=== PATIENT | male | born 1940 | race Caucasian/White ===

== ENCOUNTER 2018-09-08 23:39 | Emergency (ER) | payer MEDICARE, OTHER ==
[2018-09-08] MEDS ORDERED: NORMAL SALINE 1000 ML 1,000 ML IV ONE (23:59)
[2018-09-09] MEDS ORDERED: METOCLOPRAMIDE HCL INJ/PF 10 MG/2 ML SDV IV ONE (00:02)
--- NOTE | 2018-09-09 00:04 | ER Document Report ---
ED Medical Screen (RME) - General Chief Complaint: Chest Pain Stated Complaint: CHEST PAIN Time Seen by Provider: 09/08/18 23:59 Notes: 77-year-old male chief complaint of epigastric pain (he points) and 5 episodes of vomiting. He had a loose stool earlier today. Denies hematemesis. He is visiting from [place]. Multiple abdominal surgeries including a neobladder, status post bladder and prostate cancer with removal. No recent surgeries, not on chemotherapy or radiation. Physical Exam - Vital signs Vitals: Temp Pulse Resp BP Pulse Ox 97.5 F 91 18 129/74 H 94 09/08/18 23:53 09/08/18 23:53 09/08/18 23:53 09/08/18 23:53 09/08/18 23:53 - Abdominal Tenderness: Tender - Tender in the epigastric area, lower abdomen is benign Course - Re-evaluation Re-evalutation: Patient belching, seems to have chest vomiting. Sharp epigastric pain. Ot herwise he is alert and generally well-appearing. Maintaining current triage level, work-up pending. I have greeted and performed a rapid initial assessment of this patient. A comprehensive ED assessment and evaluation of the patient, analysis of test results and completion of the medical decision making process will be conducted by additional ED providers. - Vital Signs Vital signs: Temp Pulse Resp BP Pulse Ox 97.5 F 91 18 129/74 H 94 09/08/18 23:53 09/08/18 23:53 09/08/18 23:53 09/08/18 23:53 09/08/18 23:53
--- NOTE | 2018-09-09 00:27 | ER Document Report ---
ED General - General Chief Complaint: Chest Pain Stated Complaint: CHEST PAIN Time Seen by Provider: 09/08/18 23:59 - HPI Notes: Patient is a 77-year-old male that presents to the emergency department for chief complaint of abdominal pain and vomiting. Patient reports eating at [employer] around 6 PM yesterday. At 9 PM he started to have epigastric abdominal pain and vomiting. He states he has vomited 3 times last night and about 5 times again this evening. He reports epigastric pain that is sharp and constant. He did have one large well-formed bowel movement prior to coming to the ER and states that he did have improvement of his pain after bowel movement. He denies any aggravating factors to his pain. The pain is epigastric and radiates up into his chest and his midsternal region. He states the chest pain started this evening and is a heavy achy sensation. The pain in his chest started after taking his evening pills and he reports feeling like something may be "stuck". He denies associated fevers or chills. Patient does have a history of small bowel obstructions in the past but states this feels different. He denies history of pancreatitis. He denies alcohol use. Past Medical History: Bladder cancer, prostate cancer, neobladder Past Surgical History: Small bowel resection, multiple bladder surgeries Social History: Denies drugs alcohol and tobacco Family History: Reviewed and noncontributory for presenting illness Allergies: Reviewed, see documented allergy list. REVIEW OF SYSTEMS: CONSTITUTIONAL : No fever No chills No diaphoresis No recent illness EENT: No vision changes No congestion No sore throat CARDIOVASCULAR: chest pain No palpitations RESPIRATORY: No shortness of breath No cough No difficulty breathing GASTROINTESTINAL: abdominal pain nausea vomiting No diarrhea GENITOURINARY: No dysuria No hematuria No difficulty urinating MUSCULOSKELETAL: No back pain No leg pain No arm pain SKIN: No rashes No lesions LYMPHATIC: No swollen, enlarged glands. NEUROLOGICAL: No lightheadedness No headache No weakness No paresthesias PSYCHIATRIC: No anxiety No depression PHYSICAL EXAMINATION: Vital signs reviewed, nursing noted reviewed. GENERAL: Well-appearing, well-nourished and in no acute distress. HEAD: Atraumatic, normocephalic. EYES: Eyes appear normal, extraocular movements intact, sclera anicteric, conjunctiva are normal. ENT: nares patent, oropharynx clear without exudates. Dry mucous membranes. NECK: Normal range of motion, supple without lymphadenopathy LUNGS: Breath sounds clear to auscultation bilaterally and equal. No wheezes rales or rhonchi. HEART: Regular rate and rhythm without murmurs ABDOMEN: Soft, epigastric tenderness, normoactive bowel sounds. No rebound, guarding, or rigidity. No masses appreciated. EXTREMITIES: Nontender, good range of motion, no pitting or edema. NEUROLOGICAL: No focal neurological deficits. Moves all extremities spontaneously Motor and sensory grossly intact on exam. PSYCH: Normal mood, normal affect. SKIN: Warm, Dry, normal turgor, no rashes or lesions noted on exposed skin Past Medical History - Social History Smoking Status: Never Smoker Family History: Reviewed & Not Pertinent Physical Exam - Vital signs Vitals: Temp Pulse Resp BP Pulse Ox 97.5 F 91 18 129/74 H 94 09/08/18 23:53 09/08/18 23:53 09/08/18 23:53 09/08/18 23:53 09/08/18 23:53 Course - Re-evaluation Re-evalutation: 09/09/18 00:27 Vitals reviewed. Nursing notes reviewed. Patient was given fluids and Reglan in triage and reports significant symptomatic improvement. He does have mild epigastric tenderness with no peritoneal signs. 09/09/18 01:31 Patient's lab work shows a leukocytosis and elevation of his lipase. He does have epigastric tenderness to suggest acute pancreatitis. Patient also has renal insufficiency secondary to dehydration. He is receiving IV fluids. His leukocytosis is likely reactive from his continuous vomiting and there is no current signs of acute infection requiring antibiotics. His chest ray showed bibasilar atelectasis versus pneumonia however he has not had any cough symptoms to suggest pneumonia and I believe this to be atelectasis from positioning. He is not septic. KUB shows dilated loops of small bowel consistent with likely small bowel obstruction. Patient has had multiple abdominal surgeries and obstructions in the past. CT scan with oral contrast will be ordered to further delineate patient's bowel obstruction. Laboratory 09/09/18 09/09/18 09/09/18 00:18 00:18 00:18 WBC 14.9 H RBC 5.71 H Hgb 16.7 Hct 50.2 MCV 88 MCH 29.3 MCHC 33.4 RDW 14.1 H Plt Count 241 Seg Neutrophils % 80.4 H Lymphocytes % 9.9 L Monocytes % 9.4 Eosinophils % 0.1 Basophils % 0.2 Absolute Neutrophils 12.0 H Absolute Lymphocytes 1.5 Absolute Monocytes 1.4 Absolute Eosinophils 0.0 Absolute Basophils 0.0 Sodium 141.7 Potassium 4.6 Chloride 104 Carbon Dioxide 26 Anion Gap 12 BUN 35 H Creatinine 1.44 H Est GFR ( Amer) 58 L Est GFR (Non-Af Amer) 48 L Glucose 163 H Calcium 9.6 Total Bilirubin 0.7 Direct Bilirubin 0.3 Neonat Total Bilirubin Not Reportable Neonat Direct Bilirubin Not Reportable Neonat Indirect Bili Not Reportable AST 25 ALT 32 Alkaline Phosphatase 78 Troponin I < 0.012 Total Protein 6.7 Albumin 3.9 Lipase 447.5 H Chest X-Ray 09/09/18 00:24 IMPRESSION: Right basilar interstitial opacities, likely representing atelectasis or possibly pneumonia. copyright 2010 [employer]- All Rights Reserved KUB X-Ray 09/09/18 00:24 IMPRESSION: Dilated short segment of small bowel which may be due to an obstruction or focal ileus. copyright 2010 [employer]- All Rights Reserved 09/09/18 01:39 On reevaluation patient states he is feeling some improvement. Repeat abdominal exam is unchanged. He has not vomited since being in the ED. 09/09/18 03:50 Patient has no bowel obstruction or other acute process on CT scan of his abdomen. He tolerated drinking all of the oral contrast and has not had any emesis. Patient does not have acute urinary tract infection. His leukocytosis and elevated lipase are likely reactive from the vomiting but he is tolerating oral intake and is currently comfortable with minimal pain. Patient would like to be discharged home. I did offer admission to the hospital for hydration and monitoring of his renal insufficiency but he has declined. He states he will eat a liquid diet today and advance his diet as tolerated with bland foods. I did discuss staying well-hydrated and return precautions. Patient states he will return for any worsening symptoms or inability to tolerate oral intake. He will follow with his primary care doctor when he returns home for repeat blood work. - Vital Signs Vital signs: Temp Pulse Resp BP Pulse Ox 97.5 F 91 18 129/74 H 94 09/08/18 23:53 09/08/18 23:53 09/08/18 23:53 09/08/18 23:53 09/08/18 23:53 - Laboratory Result Diagrams: 09/09/18 00:18 09/09/18 00:18 Laboratory results interpreted by me: 09/09/18 09/09/18 09/09/18 00:18 00:18 03:14 WBC 14.9 H RBC 5.71 H RDW 14.1 H Seg Neutrophils % 80.4 H Lymphocytes % 9.9 L Absolute Neutrophils 12.0 H BUN 35 H Creatinine 1.44 H Est GFR ( Amer) 58 L Est GFR (Non-Af Amer) 48 L Glucose 163 H Lipase 447.5 H Urine Protein 30 H Urine Ascorbic Acid 40 H Discharge - Discharge Clinical Impression: Acute renal insufficiency, Dehydration, Elevated lipase Abdominal pain Qualifiers: Abdominal location: upper abdomen, unspecified Qualified Code(s): R10.10 - Upper abdominal pain, unspecified Vomiting Qualifiers: Vomiting type: unspecified Vomiting Intractability: non-intractable Nausea presence: with nausea Qualified Code(s): R11.2 - Nausea with vomiting, unspecified Condition: Stable Disposition: HOME, SELF-CARE Instructions: Abdominal Pain ([facility]), Vomiting ([facility]), Dehydration ([facility]) Additional Instructions: Please return to the emergency department if you have any worsening, or concern of your symptoms. Please return to the emergency department if you develop chest pain, difficulty breathing, severe abdominal pain, or ongoing vomiting. Please follow-up with your primary care physician in 2-3 days and any other recommended physicians. If prescribed, take all medications as directed. If you have any questions or concerns do not hesitate to return the emergency department for evaluation. If you are unable to stay hydrated at home or have continued vomiting and worsening pain you should be reevaluated in the emergency room. Prescriptions: Ondansetron [Zofran Odt 4 mg Tablet] 1 tab PO Q4H PRN #15 tab.rapdis PRN Reason: For Nausea/Vomiting Referrals: [facility] [Provider Group] - Follow up as needed
[2018-09-09 00:35] LABS: ABSOLUTE LYMPHOCYTES (AUTO) 1.5 10^3/uL (0.5-4.7); ABSOLUTE MONOCYTES (AUTO) 1.4 10^3/uL (0.1-1.4); BASOPHILS % (AUTO) 0.2 % (0-2); EOSINOPHILS % (AUTO) 0.1 % (0-6); HEMATOCRIT 50.2 % (37.9-51.0); HEMOGLOBIN 16.7 g/dL (13.5-17.0); LYMPHOCYTES % (AUTO) 9.9 % (13-45); MEAN CORPUSCULAR HEMOGLOBIN 29.3 pg (27.0-33.4); MEAN CORPUSCULAR HGB CONC 33.4 g/dL (32.0-36.0); MEAN CORPUSCULAR VOLUME 88 fl (80-97); MONOCYTES % (AUTO) 9.4 % (3-13); PLATELET COUNT 241 10^3/uL (150-450); RED BLOOD COUNT 5.71 10^6/uL (4.35-5.55); RED CELL DISTRIBUTION WIDTH 14.1 % (11.5-14.0); SEGMENTED NEUTROPHILS % (AUTO) 80.4 % (42-78); TOTAL CELLS COUNTED % (AUTO) 100 %; WHITE BLOOD COUNT 14.9 10^3/uL (4.0-10.5)
[2018-09-09 01:00] LABS: ALANINE AMINOTRANSFERASE 32 U/L (21-72); ALBUMIN 3.9 g/dL (3.5-5.0); ALKALINE PHOSPHATASE 78 U/L (38-126); ANION GAP 12 (5-19); ASPARTATE AMINO TRANSFERASE 25 U/L (17-59); BILIRUBIN,DIRECT 0.3 mg/dL (0.0-0.4); BILIRUBIN,TOTAL 0.7 mg/dL (0.2-1.3); BLOOD UREA NITROGEN 35 mg/dL (7-20); CALCIUM 9.6 mg/dL (8.4-10.2); CARBON DIOXIDE 26 mmol/L (22-30); CHLORIDE 104 mmol/L (98-107); GLUCOSE 163 mg/dL (75-110); LIPASE 447.5 U/L (23-300); POTASSIUM 4.6 mmol/L (3.6-5.0); SODIUM 141.7 mmol/L (137-145); TOTAL PROTEIN 6.7 g/dL (6.3-8.2)
--- NOTE | 2018-09-09 01:17 | RADIOLOGY REPORT (SQ) ---
EXAM DESCRIPTION: XR ABDOMEN 1 VIEW (KUB) COMPLETED DATE/TME: 09/09/2018 00:24 CLINICAL HISTORY: 77 years, Male, abdominal pain, epigastric] COMPARISON: None. NUMBER OF VIEWS: One TECHNIQUE: AP view of the abdomen LIMITATIONS: None. FINDINGS: There is a dilated segment of small bowel along the left paracentral abdomen which measures up to 3.3 cm in diameter. There are no abnormal calcifications. Multiple surgical clips are noted in the lower abdomen and pelvis. There is no acute fracture. IMPRESSION: Dilated short segment of small bowel which may be due to an obstruction or focal ileus. copyright 2010 [employer]- All Rights Reserved
--- NOTE | 2018-09-09 01:18 | RADIOLOGY REPORT (SQ) ---
EXAM DESCRIPTION: XR CHEST 1 VIEW COMPLETED DATE/TME: 09/09/2018 00:24 CLINICAL HISTORY: 77 years, Male, chest pain COMPARISON: None. NUMBER OF VIEWS: One TECHNIQUE: AP view of the chest LIMITATIONS: None. FINDINGS: There are right basilar interstitial opacities. There is mild elevation right hemidiaphragm. The left lung is clear. The heart is normal in size. There is no pneumothorax or pleural effusion. There is no acute fracture. IMPRESSION: Right basilar interstitial opacities, likely representing atelectasis or possibly pneumonia. copyright 2010 [employer]- All Rights Reserved
[2018-09-09] MEDS ORDERED: NORMAL SALINE 1000 ML 1,000 ML IV ONE (02:27)
--- NOTE | 2018-09-09 03:35 | RADIOLOGY REPORT (SQ) ---
CLINICAL HISTORY: abdominal pain COMPARISON: None. TECHNIQUE: CT ABDOMEN PELVIS WITH IV CONTRAST on 09/09/2018 12:00 AM CDT This exam was performed according to our departmental dose-optimization program, which includes automated exposure control, adjustment of the mA and/or kV according to patient size and/or use of iterative reconstruction technique. FINDINGS: There is right basilar atelectasis. Abdomen: The liver is normal in appearance. There is no biliary dilatation. Gallbladder is normally distended. There are postoperative changes throughout the retroperitoneum. The pancreas and spleen are normal in appearance. The adrenal glands and kidneys are unremarkable. Abdominal aorta is normal in course and caliber without aneurysm. There is no free air. There is no retroperitoneal adenopathy. Pelvis: There is moderate amount of stool throughout the colon. Urinary bladder is lobulated and poorly distended. There is no free fluid. Prostate appears to be absent. Appendix is normal. Skeleton: There are no acute osseous findings. No suspicious bony lesions. IMPRESSION: No acute inflammatory process. No overt findings of bowel obstruction.
[2018-09-09 03:39] LABS: APPEARANCE,URINE CLOUDY; BILIRUBIN,URINE NEGATIVE (NEGATIVE); GLUCOSE, URINE NEGATIVE (NEGATIVE); KETONES,URINE NEGATIVE (NEGATIVE); LEUKOCYTE ESTERASE,URINE NEGATIVE (NEGATIVE); NITRITE,URINE NEGATIVE (NEGATIVE); PROTEIN,URINE 30 mg/dL (NEGATIVE); URINE SPECIFIC GRAVITY 1.013; UROBILINOGEN,URINE NEGATIVE mg/dL (<2.0)
[2018-09-09 03:41] LABS: COLOR,URINE YELLOW
[2018-09-09 04:18] VITALS: BP 133/76
--- NOTE | 2018-09-09 22:33 | EKG REPORT ---
SEVERITY:- ABNORMAL ECG - SINUS RHYTHM INCOMPLETE RIGHT BUNDLE BRANCH BLOCK LVH WITH IVCD AND SECONDARY REPOL ABNRM : Confirmed by: Jayne Terry MD 09-Sep-2018 22:32:38
== END 2018-09-09 04:24 | disposition home or self-care (01) ==
LOC: ER 23:39
DX: R10.13 Epigastric pain (principal); R07.9 Chest pain, unspecified; R11.2 Nausea with vomiting, unspecified; R74.8 Abnormal levels of other serum enzymes; E86.0 Dehydration; N28.9 Disorder of kidney and ureter, unspecified; Z87.19 Personal history of other diseases of the digestive system; Z85.51 Personal history of malignant neoplasm of bladder; Z85.46 Personal history of malignant neoplasm of prostate; R10.816 Epigastric abdominal tenderness; D72.829 Elevated white blood cell count, unspecified
CPT/HCPCS: 93005; 99284; 96360; 96361; 36415; 83690; 85025; 80053; 81001; 84484; 71045; 74018; 74177; 93010; J7030